=== PATIENT | female | born 1945 | race Caucasian/White ===

== ENCOUNTER → 2020-05-10 | Outpatient (CLI) | payer MEDICARE, OTHER | LOC: HEART 5 14:16 | DX: I10 Essential (primary) hypertension (principal); I51.7 Cardiomegaly; I37.1 Nonrheumatic pulmonary valve insufficiency | CPT/HCPCS: 93306 ==

== ENCOUNTER 2020-10-19 10:20 | Inpatient (IN) | payer MEDICARE, OTHER ==
[~2020-10-19] VITALS: Ht 165.1 cm; Wt 74.8 kg
[2020-10-19 11:37] LABS: HEMOGLOBIN 14.1 gm/dl (12.3-15.3); RED BLOOD COUNT 4.51 M/UL (4.00-5.10); WHITE BLOOD COUNT 7.1 K/UL (4.5-11.0)
[2020-10-19 11:57] LABS: BUN/CREATININE RATIO 23 (0-10)
[2020-10-19] MEDS ORDERED: ZESTRIL20 MG PO (15:07)
[2020-10-19] MEDS ORDERED: SYNTHROID150 MCG PO (15:08)
[2020-10-19] MEDS ORDERED: PRAVASTATIN SOD80 MG PO (15:08)
[2020-10-19] MEDS ORDERED: LOPRESSOR 25 MG25 MG PO (15:08)
[2020-10-19] MEDS ORDERED: ALENDRONATE SOD35 MG PO (15:08)
[2020-10-19] MEDS ORDERED: DRISDOL1250 MCG PO (15:36)
[2020-10-19] MEDS ORDERED: ASPIRIN EC81 MG PO (15:36)
[2020-10-19 21:18] LABS: BUN/CREATININE RATIO 20 (0-10)
[2020-10-20 06:29] LABS: HEMOGLOBIN 14.9 gm/dl (12.3-15.3); RED BLOOD COUNT 4.78 M/UL (4.00-5.10); WHITE BLOOD COUNT 5.9 K/UL (4.5-11.0)
[2020-10-20 06:53] LABS: BUN/CREATININE RATIO 16 (0-10)
[2020-10-20] MEDS ORDERED: AUGMENTIN 875-1 EACH PO (09:14)
== END 2020-10-20 12:16 | disposition home or self-care (01) | DRG 641 ==
LOC: ER1 10:20 → CDU 14:09 → M/S 16:21
PROVIDERS: Physician Assistant; ADMIT Internal Medicine
DX: E87.1 Hypo-osmolality and hyponatremia (principal); N30.00 Acute cystitis without hematuria; E86.0 Dehydration; I10 Essential (primary) hypertension; E78.5 Hyperlipidemia, unspecified; Z20.822 Contact with and (suspected) exposure to COVID-19; E03.9 Hypothyroidism, unspecified; Z82.49 Family history of ischemic heart disease and other diseases of the circulatory system; Z83.3 Family history of diabetes mellitus; Z80.1 Family history of malignant neoplasm of trachea, bronchus and lung; Z88.8 Allergy status to other drugs, medicaments and biological substances; Z79.82 Long term (current) use of aspirin; Z79.890 Hormone replacement therapy
CPT/HCPCS: 80048; 80053; 81001; 82436; 82962; 83605; 83690; 84133; 84300; 85025; 87077; 87086; 87186; 93005; 96374; 99285; J0696; J2405; U0002

== ENCOUNTER → 2021-01-04 | Outpatient (CLI) | payer MEDICARE, OTHER ==
[~2021-01-04] MED LIST: ALENDRONATE SOD35 MG PO; ASPIRIN EC81 MG PO; AUGMENTIN 875-1 EACH PO; DRISDOL1250 MCG PO; LOPRESSOR 25 MG25 MG PO; PRAVASTATIN SOD80 MG PO; SYNTHROID150 MCG PO; ZESTRIL20 MG PO
== END ==
LOC: LAB 08:50
DX: R94.5 Abnormal results of liver function studies (principal)
CPT/HCPCS: 36415; 80076

== ENCOUNTER → 2021-01-25 | Outpatient (CLI) | payer MEDICARE, OTHER ==
[2021-01-25 09:57] LABS: RED BLOOD COUNT 4.65 M/UL (4.00-5.10); WHITE BLOOD COUNT 5.2 K/UL (4.5-11.0)
[2021-01-25 10:11] LABS: BUN/CREATININE RATIO 23 (0-10)
== END ==
LOC: LAB 08:55
PROVIDERS: Family Medicine
DX: E78.5 Hyperlipidemia, unspecified (principal); I10 Essential (primary) hypertension; E55.9 Vitamin D deficiency, unspecified
CPT/HCPCS: 36415; 80053; 80061; 84439; 84443; 85027

== ENCOUNTER → 2021-08-13 | Outpatient (CLI) | payer MEDICARE, OTHER ==
[2021-08-13 10:34] LABS: HEMOGLOBIN 14.6 gm/dl (12.3-15.3); RED BLOOD COUNT 4.71 M/UL (4.00-5.10); WHITE BLOOD COUNT 5.5 K/UL (4.5-11.0)
[2021-08-13 10:55] LABS: BUN/CREATININE RATIO 24 (0-10)
[2021-08-14 10:18] LABS: CREATININE, URINE 37.8 mg/dL (Not Estab.); MICROALB/CREAT RATIO <8 (0-29)
== END ==
LOC: LAB 09:42
PROVIDERS: Nurse Practitioner Family
DX: Z13.1 Encounter for screening for diabetes mellitus (principal); R79.89 Other specified abnormal findings of blood chemistry; I10 Essential (primary) hypertension; E78.5 Hyperlipidemia, unspecified; M79.603 Pain in arm, unspecified; M54.9 Dorsalgia, unspecified; R07.89 Other chest pain; E53.8 Deficiency of other specified B group vitamins; E55.9 Vitamin D deficiency, unspecified; R31.9 Hematuria, unspecified; R53.83 Other fatigue; Z00.00 Encounter for general adult medical examination without abnormal findings
CPT/HCPCS: 36415; 80053; 80061; 81001; 82043; 82570; 82607; 83036; 84439; 84443; 85025

== ENCOUNTER → 2021-08-26 | Outpatient (CLI) | payer MEDICARE, OTHER | LOC: EXRD 09:47 | DX: M54.2 Cervicalgia (principal); M54.6 Pain in thoracic spine; M54.50 Low back pain, unspecified | CPT/HCPCS: 72040; 72070; 72100 ==

== ENCOUNTER 2021-09-30 09:59 | Observation (INO) | payer MEDICARE, OTHER ==
[~2021-09-30] VITALS: Ht 165.1 cm; Wt 68.5 kg
[~2021-09-30 09:59] MED LIST changes: +SYNTHROID137 MCG PO; -SYNTHROID150 MCG PO
[2021-09-30 10:47] LABS: RED BLOOD COUNT 4.82 M/UL (4.00-5.10)
[2021-09-30 11:08] LABS: BUN/CREATININE RATIO 32 (0-10)
[2021-09-30] MEDS ORDERED: FAMOTIDINE40 MG PO (13:29)
[2021-10-01 00:42] LABS: RED BLOOD COUNT 4.49 M/UL (4.00-5.10); WHITE BLOOD COUNT 8.3 K/UL (4.5-11.0)
[2021-10-01 01:05] LABS: BUN/CREATININE RATIO 23 (0-10)
== END 2021-10-01 13:11 | disposition home or self-care (01) ==
LOC: ER1 09:59 → CDU 12:36 → MED SURG 4 12:36
PROVIDERS: Emergency Medicine; Physician Assistant Medical; ADMIT Internal Medicine
DX: R11.2 Nausea with vomiting, unspecified (principal); E87.1 Hypo-osmolality and hyponatremia; R06.00 Dyspnea, unspecified; E03.9 Hypothyroidism, unspecified; E78.5 Hyperlipidemia, unspecified; M81.0 Age-related osteoporosis without current pathological fracture; I10 Essential (primary) hypertension; I08.3 Combined rheumatic disorders of mitral, aortic and tricuspid valves; I31.3 Pericardial effusion (noninflammatory); Z20.822 Contact with and (suspected) exposure to COVID-19; Z87.09 Personal history of other diseases of the respiratory system; Z79.82 Long term (current) use of aspirin; Z79.890 Hormone replacement therapy; Z79.899 Other long term (current) drug therapy; Z88.5 Allergy status to narcotic agent; Z88.8 Allergy status to other drugs, medicaments and biological substances
CPT/HCPCS: ECHO; 0240U; 71045; 80048; 80053; 82550; 82553; 83735; 83880; 84484; 85025; 85027; 85379; 93005; 93306; 96374; 96376; 99285; G0378; J2405

== ENCOUNTER → 2021-10-11 | Outpatient (CLI) | payer MEDICARE, OTHER ==
[~2021-10-11] MED LIST changes: +FAMOTIDINE40 MG PO
== END ==
LOC: LAB 09:10
DX: E03.9 Hypothyroidism, unspecified (principal); R53.83 Other fatigue; E78.5 Hyperlipidemia, unspecified
CPT/HCPCS: 36415; 84439; 84443